=== PATIENT | male | born 1965 | race Caucasian/White ===

== ENCOUNTER 2016-08-05 16:23 | Emergency (ER) | payer OTHER ==
[~2016-08-05 16:23] MED LIST: PERCOCET1 TA1 PO
--- NOTE | 2016-08-05 17:10 | DIAGNOSTIC IMAGING REPORT ---
PROCEDURE: XR CHEST 1 VIEW INDICATION: CHEST PAIN TECHNIQUE: Portable AP view 04:57 p.m. COMPARISON: Chest 05/23/2015 FINDINGS: Lungs are clear. Heart and mediastinum are normal. Thorax is normal. IMPRESSION: 1. Negative chest.
--- NOTE | 2016-08-05 18:29 | ED NURSING NOTES ---
Clinical Report - Nurses [facility] [address] [place] [address] 08/05/2016 16:25 Patient: SAMANTHA FRANK TRIAGE Triage time 16:35. Chief Complaint: SKIN PROBLEM and BOIL. --16:39 Christine Matute R.N. 16:34 08/05/16. BP: 141/86. HR: 123. RR: 18. O2 saturation: 100%. Temp: 97.4 F. Pain level now 07/18. --16:39 Christine Matute R.N. Weight: 77.1 kg stated. Height/Length: 72 inches Per Patient. BMI: 23.1. --18:31 Bismark Mcgregor R.N. Medications None. --16:36 Christine Matute R.N. Allergies Sulfa Antibiotics. Possible --16:37 Bismark Mcgregor R.N. The following entry was struck and corrected by Bismark Mcgregor R.N., 18:31 (08/05/16) Reason for correction - other(correction). <<STRICKEN ENTRY-- Sulfa Antibiotics. --16:37 Christine Matute R.N. --END STRIKE>>. History Arrived by private vehicle. Historian: patient. Location - left buttock and left wrist. It is described as painful. ( shoots up with heroine). SOCIAL HX: Heavy tobacco smoker (cigarette)- less than 1 pack per day. History of drug use: heroin, methamphetamines. No alcohol use. No infectious disease exposure. NUTRITIONAL RISK ASSESSMENT: The nutritional risk assessment revealed no deficiencies. FUNCTIONAL ASSESSMENT: Functional assessment: no impairments noted. LEARNING NEEDS ASSESSMENT: The learning needs assessment revealed no barriers. SKIN INTEGRITY ASSESSMENT: Skin integrity risk assessment completed. No skin integrity risk identified. --16:39 Christine Matute R.N. PROBLEMS: Abscess. Substance Abuse. Colon Cancer. Fractured jaw. Fractured collar bone. Fractured pelvis in 2 places. Hiatal Hernia. Hypertension. --16:37 Christine Matute R.N. ADDITIONAL SURGERIES: Appendectomy. --16:37 Christine Matute R.N. Interventions ID band on patient. To treatment room. --16:39 Christine Matute R.N. PHYSICAL ASSESSMENT 16:41 08/05/16. GENERAL / NEURO / PSYCH: Alert. Oriented X 4. HEENT: Mucous membranes are pink. RESPIRATORY: Mild respiratory distress. Cough. Breath sounds within normal limits. CVS: Capillary refill less than 2 seconds. Pulses within normal limits. GI / : Abdomen nontender. SKIN: Skin lesion present. Normal skin turgor. Clear drainage. Tenderness on the left forearm and left buttock. Swelling present. Increased warmth on the back, left forearm and left buttock. Erythema in the left groin, on the back, waist area, left forearm and left buttock. --16:41 Christine Matute R.N. NURSING PROGRESS NOTES 16:42 08/05/16. The plan of care for this patient includes an assessment with efforts to address the patient's anxiety and fear; impairment of the integumentary system; therapeutic needs of the patient as indicated by complaint specific guidelines. Patient gowned. Call light placed in reach. Side rails up x 1. Bed placed in lowest position. Brakes of bed on. Patient ready for evaluation- chart flagged. --16:42 Christine Matute R.N. EKG time: (1651). EKG was ordered, performed by a tech and shown to the ED physician. --17:04 Yazmin Choi ER Tech1 17:50 08/05/16. I & D: Incision and Drainage of abscess performed by MOOK. Assisted by one tech. Preparation: Incision and Drainage tray set up with 2% lidocaine with epi. Post-procedure: he was stable. --17:50 Christine Matute R.N. ( culture sent to lab.). --18:02 Yazmin Choi ER Tech1 18:17 08/05/16. BP: 124/79. HR: 122. RR: 6. O2 saturation: 98% on room air. Temp: 98.9 F. Pain level now: 2/10. Additional comments: in abdomen, feels constipated. --18:18 Christine Matute R.N. 18:07 08/05/2016 Lidocaine-Epinephrine (Lidocaine-Epinephrine) Injection 2 % given. (completed by MOOK). --18:32 Bismark Mcgregor R.N. 18:20 08/05/2016 Bactrim DS (Sulfamethoxazole-TMP DS) PO Tablets 1 tab given. Allergies verified and confirmed 5 rights. (patient states he has had bactrim before and had no problems. Not sure when he had reaction to Sulfa). --18:20 Christine Matute R.N. 18:29 08/05/16. --18:29 Bismark Mcgregor R.N. <<STRICKEN ENTRY-- 18:29 08/05/16. BP: 124/72. HR: 77. RR: 14. O2 saturation: 99% on room air. Temp: 98.1 F. Pain level now: 0/10. --18:29 Bismark Mcgregor R.N. --END STRIKE>> Correction. --18:30 Bismark Mcgregor R.N. 18:31 08/05/16. --18:31 Bismark Mcgregor R.N. 18:30 08/05/16. BP: 130/77. HR: 117. RR: 20. O2 saturation: 97% on room air. Temp: 98.1 F (oral). Pain level now: 0/10. --18:31 Bismark Mcgregor R.N. DISPOSITION / DISCHARGE 18:35 08/05/16. Condition at departure: improved. The goals identified in the patient's plan of care were met. No learning barriers present. Discharge instructions provided and reviewed with the patient. Reviewed warnings. Reviewed medication(s). Treatments reviewed. Patient verbalized understanding. Written instructions provided in Faroese. The patient was discharged by the physician assistant property manager. He was discharged home and accompanied by family. He left the Emergency Department ambulatory and via private vehicle. Family member driving. FALL RISK ASSESSMENT: Fall risk assessment completed. No fall risk identified. --18:35 Bismark Mcgregor R.N. 18:34 08/05/16. BP: 121/78. HR: 118. HR. PA notified. RR: 20. O2 saturation: 100% on room air. Temp: 98.1 F (oral). Pain level now: 0/10. --18:35 Bismark Mcgregor R.N. 18:35 08/05/16. Departure time: 18:35. --18:35 Bismark Mcgregor R.N. Locked/Released at 08/05/2016 18:47 by Bismark Mcgregor R.N.
--- NOTE | 2016-08-05 18:29 | ED ORDER SUMMARY ---
..... Patient: SAMANTHA FRANK OrderSheet [facility] VisitID: [id number] [place] [address] 51y, M Registration Date/Time: 08/05/2016 ORDER SHEET Weight: 77.1 kg (stated) Allergies: Sulfa Antibiotics, GENERAL ORDERS: Chest 1V Urgent (16:45 08/05/2016 EKoroleva P.A.-C) (Ack 16:46 KHoerner) (17:39 TChapman R.N.) Particleboard Factory Worker (Continuous) (16:46 08/05/2016 EKoroleva P.A.-C) (Ack 16:46 KHoerner) CBC w Diff Urgent (16:46 08/05/2016 EKoroleva P.A.-C) (Ack 16:46 KHoerner) (17:39 TChapman R.N.) BMP Urgent (16:46 08/05/2016 EKoroleva P.A.-C) (Ack 16:46 KHoerner) (17:39 TChapman R.N.) EKG - ER Stat (16:46 08/05/2016 EKoroleva P.A.-C) (Ack 16:46 KHoerner) (17:03 LNations ER Tech1) PCT (Procalcitonin) Urgent (16:46 08/05/2016 EKoroleva P.A.-C) (Ack 16:47 KHoerner) (17:39 TChapman R.N.) Lactate, Serum Urgent (16:46 08/05/2016 EKoroleva P.A.-C) (Ack 16:47 KHoerner) (17:39 TChapman R.N.) Set up (I&D) (16:47 08/05/2016 EKoroleva P.A.-C) (17:19 TChapman R.N.) Vitals (17:52 08/05/2016 EKoroleva P.A.-C) (18:13 TChapman R.N.) Culture, Wound Surface (Buttock) (L) Urgent (18:11 08/05/2016 Garland De La CruzASusana-Janis) (18:12 LNations ER Tech1) MEDICATION ORDERS: Lidocaine-Epinephrine Injection 2 % (soln) (NOW, place at bedside) (16:47 08/05/2016 Garland Coe.ASusana-C) (Ack 17:19 TChapman R.N.) (18:32 JBoardley R.N.) Bactrim DS PO (Tablet 800-160 mg) 1 tab (NOW) (18:14 08/05/2016 Garland Coe.ASusana-C) (18:20 TChapman R.N.) IV FLUIDS: ORDER SHEET NOTES: [Electronically signed by Bismark Mcgregor R.N. (18:47 08/05/2016)] [Electronically signed by Billie Grissom P.A.-C (21:28 08/05/2016)] [Electronically locked/signed by Bismark Mcgregor R.N. (18:47 08/05/2016)]
--- NOTE | 2016-08-05 18:29 | ED ORDER SUMMARY ---
..... Patient: SAMANTHA FRANK OrderSheet [facility] VisitID: [id number] [place] [address] 51y, M Registration Date/Time: 08/05/2016 ORDER SHEET Weight: 77.1 kg (stated) Allergies: Sulfa Antibiotics, GENERAL ORDERS: Chest 1V Urgent (16:45 08/05/2016 EKoroleva P.A.-C) (Ack 16:46 KHoerner) (17:39 TChapman R.N.) Professor Of Early Childhood Education (Continuous) (16:46 08/05/2016 EKoroleva P.A.-C) (Ack 16:46 KHoerner) CBC w Diff Urgent (16:46 08/05/2016 EKoroleva P.A.-C) (Ack 16:46 KHoerner) (17:39 TChapman R.N.) BMP Urgent (16:46 08/05/2016 EKoroleva P.A.-C) (Ack 16:46 KHoerner) (17:39 TChapman R.N.) EKG - ER Stat (16:46 08/05/2016 EKoroleva P.A.-C) (Ack 16:46 KHoerner) (17:03 LNations ER Tech1) PCT (Procalcitonin) Urgent (16:46 08/05/2016 EKoroleva P.A.-C) (Ack 16:47 KHoerner) (17:39 TChapman R.N.) Lactate, Serum Urgent (16:46 08/05/2016 EKoroleva P.A.-C) (Ack 16:47 KHoerner) (17:39 TChapman R.N.) Set up (I&D) (16:47 08/05/2016 EKoroleva P.A.-C) (17:19 TChapman R.N.) Vitals (17:52 08/05/2016 EKoroleva P.A.-C) (18:13 TChapman R.N.) Culture, Wound Surface (Buttock) (L) Urgent (18:11 08/05/2016 Garland De La CruzASusana-Janis) (18:12 LNations ER Tech1) MEDICATION ORDERS: Lidocaine-Epinephrine Injection 2 % (soln) (NOW, place at bedside) (16:47 08/05/2016 Garland Coe.ASusana-C) (Ack 17:19 TChapman R.N.) (18:32 JBoardley R.N.) Bactrim DS PO (Tablet 800-160 mg) 1 tab (NOW) (18:14 08/05/2016 Garland Coe.ASusana-C) (18:20 TChapman R.N.) IV FLUIDS: ORDER SHEET NOTES: [Electronically signed by Bismark Mcgregor R.N. (18:47 08/05/2016)] [Electronically signed by Billie Grissom P.A.-C (21:28 08/05/2016)] [Electronically locked/signed by Bismark Mcgregor R.N. (18:47 08/05/2016)]
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
--- NOTE | 2016-08-05 21:28 | ED DISCHARGE INSTRUCTIONS ---
Patient: SAMANTHA FRANK General Instructions [facility] VisitID: [id number] [place] [address] 51y, M Registration Date/Time: 08/05/2016 Single deep abscess with incision and drainage. INSTRUCTIONS ([facility] for wound follow up if worse return to ER). Prescription Medications: Bactrim DS 800 mg / 160 mg: take 1 tablet orally every 12 hours for 10 days. No refill. Follow-up: Follow up with your doctor in three days. ADDITIONAL INFORMATION Abscess [Incision & Drainage] An abscess (sometimes called a boil) occurs when bacteria get trapped under the skin and begin to grow. Pus forms inside the abscess as the body responds to the bacteria. An abscess can occur with an insect bite, ingrown hair, blocked oil gland, pimple, cyst, or puncture wound. Treatment of your abscess has required an incision to drain the pus. If the abscess pocket was large, a gauze packing may have been inserted. This will need to be removed and possibly replaced on your next visit. Antibiotics are not required in the treatment of a simple abscess, unless the infection is spreading into the skin around the wound (known as cellulitis). Healing of the wound will take about one to two weeks depending on the size of the abscess. Healthy tissue will grow from the bottom and sides of the opening until it seals over. Home Care: The wound may drain for the first two days. Cover the wound with a clean dry dressing. If the dressing becomes soaked with blood or pus, change it. If a gauze packing was placed inside the abscess cavity, you may be advised to remove it yourself. You may do this in the shower. Once the packing is removed, you should wash the area in the shower or bath 3 to 4 times a day, until the skin opening has closed. If you were prescribed antibiotics, take them as directed until they are all gone. You may use acetaminophen (Tylenol) or ibuprofen (Motrin, Advil) to control pain, unless another pain medicine was prescribed. [ NOTE: If you have liver disease or ever had a stomach ulcer, talk with your doctor before using these medicines.] Follow Up with your doctor as advised by our staff. If a gauze packing was inserted in your wound, it should be removed in 1-2 days. Check your wound every day for the signs of worsening infection listed below. Get Prompt Medical Attention if any of the following occur: Increasing redness or swelling Red streaks in the skin leading away from the wound Increasing local pain or swelling Continued pus draining from the wound two days after treatment Fever of 100.4F (38C) or higher, or as directed by your healthcare provider Sulfamethoxazole, Trimethoprim Oral tablet What is this medicine? SULFAMETHOXAZOLE; TRIMETHOPRIM or SMX-TMP (suhl fuh meth OK emily zohl; trye METH oh prim) is a combination of a sulfonamide antibiotic and a second antibiotic, trimethoprim. It is used to treat or prevent certain kinds of bacterial infections. It will not work for colds, flu, or other viral infections. How should I use this medicine? Take this medicine by mouth with a full glass of water. Follow the directions on the prescription label. Take your medicine at regular intervals. Do not take it more often than directed. Do not skip doses or stop your medicine early. Talk to your aircraft layout worker regarding the use of this medicine in children. Special care may be needed. This medicine has been used in children as young as 2 months of age. What side effects may I notice from receiving this medicine? Side effects that you should report to your doctor or health palliative care specialist as soon as possible: allergic reactions like skin rash or hives, swelling of the face, lips, or tongue breathing problems fever or chills, sore throat irregular heartbeat, chest pain joint or muscle pain pain or difficulty passing urine red pinpoint spots on skin redness, blistering, peeling or loosening of the skin, including inside the mouth unusual bleeding or bruising unusually weak or tired yellowing of the eyes or skin Side effects that usually do not require medical attention (report to your doctor or health palliative care specialist if they continue or are bothersome): diarrhea dizziness headache loss of appetite nausea, vomiting nervousness What may interact with this medicine? Do not take this medicine with any of the following medications: aminobenzoate potassium dofetilide metronidazole This medicine may also interact with the following medications: GIDEON inhibitors like benazepril, enalapril, lisinopril, and ramipril cyclosporine digoxin diuretics indomethacin medicines for diabetes methenamine methotrexate phenytoin potassium supplements pyrimethamine sulfinpyrazone tricyclic antidepressants warfarin What if I miss a dose? If you miss a dose, take it as soon as you can. If it is almost time for your next dose, take only that dose. Do not take double or extra doses. Where should I keep my medicine? Keep out of the reach of children. Store at room temperature between 20 to 25 degrees C (68 to 77 degrees F). Protect from light. Throw away any unused medicine after the expiration date. What should I tell my health care provider before I take this medicine? They need to know if you have any of these conditions: anemia asthma being treated with anticonvulsants if you frequently drink alcohol containing drinks kidney disease liver disease low level of folic acid or [id number] dehydrogenase poor nutrition or malabsorption porphyria severe allergies thyroid disorder an unusual or allergic reaction to sulfamethoxazole, trimethoprim, sulfa drugs, other medicines, foods, dyes, or preservatives or trying to get breast-feeding What should I watch for while using this medicine? Tell your doctor or health palliative care specialist if your symptoms do not improve. Drink several glasses of water a day to reduce the risk of kidney problems. Do not treat diarrhea with over the counter products. Contact your doctor if you have diarrhea that lasts more than 2 days or if it is severe and watery. This medicine can make you more sensitive to the sun. Keep out of the sun. If you cannot avoid being in the sun, wear protective clothing and use a sunscreen. Do not use sun lamps or tanning beds/booths. You have been given the following additional information: Abscess, Incision And Drainage Sulfamethoxazole, Trimethoprim Oral tablet (Electronically signed by Billie Grissom P.A.-C 08/05/2016 21:28)
--- NOTE | 2016-08-05 21:28 | ED MAR SUMMARY ---
..... Medication Administration Record [facility] [address] [place] [address] Patient: SAMANTHA FRANK Visit ID: [id number] 51y, M Weight: 77.1 kg Height/Length: 72 in BMI: 23.1 ALLERGIES: Sulfa Antibiotics Given 18:07 08/05/2016 Bismark Mcgregor RMaria Teresa Medication Administered: LIDOCAINE-EPINEPHRINE [INJECTION] (LIDOCAINE-EPINEPHRINE), Dose: 2 % Injection. Medication Ordered: Lidocaine-Epinephrine Injection 2 % (soln) (NOW, place at bedside). Given 18:20 08/05/2016 Christine Matute R.N. Medication Administered: BACTRIM DS [PO] (SULFAMETHOXAZOLE-TMP DS), Dose: 1 tab Tablets PO. Medication Ordered: Bactrim DS PO (Tablet 800-160 mg) 1 tab (NOW).
--- NOTE | 2016-08-05 21:28 | ED MED RECONCILIATION SUMMARY ---
Patient: SAMANTHA FRANK Medication Reconciliation Report [facility] VisitID: [id number] [address] [place] [address] 51y, M Registration Date/Time: 08/05/2016 Weight: 77.1 kg Height/Length: 72 in. BMI: 23.1 ALLERGIES: Sulfa Antibiotics The patient's Home Medications are listed below: NONE. The source(s) of the original Home Medication information: Not obtained. The following Medications were given to the patient in the Emergency Department: Bactrim DS [PO] PO 1 tab, administered: 08/05/2016 6:20:00 PM Lidocaine-Epinephrine [Injection] Injection 2 %, administered: 08/05/2016 6:07:00 PM The following Medications were prescribed to the patient: Bactrim DS 800 mg / 160 mg: take 1 tablet orally every 12 hours for 10 days. No refill. -- Billie Grissom, P.A.-C
--- NOTE | 2016-08-05 21:28 | ED MED RECONCILIATION SUMMARY ---
Patient: SAMANTHA FRANK Medication Reconciliation Report [facility] VisitID: [id number] [address] [place] [address] 51y, M Registration Date/Time: 08/05/2016 Weight: 77.1 kg Height/Length: 72 in. BMI: 23.1 ALLERGIES: Sulfa Antibiotics The patient's Home Medications are listed below: NONE. The source(s) of the original Home Medication information: Not obtained. The following Medications were given to the patient in the Emergency Department: Bactrim DS [PO] PO 1 tab, administered: 08/05/2016 6:20:00 PM Lidocaine-Epinephrine [Injection] Injection 2 %, administered: 08/05/2016 6:07:00 PM The following Medications were prescribed to the patient: Bactrim DS 800 mg / 160 mg: take 1 tablet orally every 12 hours for 10 days. No refill. -- Billie Grissom, P.A.-C
--- NOTE | 2016-08-05 21:28 | ED MAR SUMMARY ---
..... Medication Administration Record [facility] [address] [place] [address] Patient: SAMANTHA FRANK Visit ID: [id number] 51y, M Weight: 77.1 kg Height/Length: 72 in BMI: 23.1 ALLERGIES: Sulfa Antibiotics Given 18:07 08/05/2016 Bismark Mcgregor RMaria Teresa Medication Administered: LIDOCAINE-EPINEPHRINE [INJECTION] (LIDOCAINE-EPINEPHRINE), Dose: 2 % Injection. Medication Ordered: Lidocaine-Epinephrine Injection 2 % (soln) (NOW, place at bedside). Given 18:20 08/05/2016 Christine Matute R.N. Medication Administered: BACTRIM DS [PO] (SULFAMETHOXAZOLE-TMP DS), Dose: 1 tab Tablets PO. Medication Ordered: Bactrim DS PO (Tablet 800-160 mg) 1 tab (NOW).
--- NOTE | 2016-08-05 21:28 | ED DISCHARGE INSTRUCTIONS ---
Patient: SAMANTHA FRANK General Instructions [facility] VisitID: [id number] [place] [address] 51y, M Registration Date/Time: 08/05/2016 Single deep abscess with incision and drainage. INSTRUCTIONS ([facility] for wound follow up if worse return to ER). Prescription Medications: Bactrim DS 800 mg / 160 mg: take 1 tablet orally every 12 hours for 10 days. No refill. Follow-up: Follow up with your doctor in three days. ADDITIONAL INFORMATION Abscess [Incision & Drainage] An abscess (sometimes called a boil) occurs when bacteria get trapped under the skin and begin to grow. Pus forms inside the abscess as the body responds to the bacteria. An abscess can occur with an insect bite, ingrown hair, blocked oil gland, pimple, cyst, or puncture wound. Treatment of your abscess has required an incision to drain the pus. If the abscess pocket was large, a gauze packing may have been inserted. This will need to be removed and possibly replaced on your next visit. Antibiotics are not required in the treatment of a simple abscess, unless the infection is spreading into the skin around the wound (known as cellulitis). Healing of the wound will take about one to two weeks depending on the size of the abscess. Healthy tissue will grow from the bottom and sides of the opening until it seals over. Home Care: The wound may drain for the first two days. Cover the wound with a clean dry dressing. If the dressing becomes soaked with blood or pus, change it. If a gauze packing was placed inside the abscess cavity, you may be advised to remove it yourself. You may do this in the shower. Once the packing is removed, you should wash the area in the shower or bath 3 to 4 times a day, until the skin opening has closed. If you were prescribed antibiotics, take them as directed until they are all gone. You may use acetaminophen (Tylenol) or ibuprofen (Motrin, Advil) to control pain, unless another pain medicine was prescribed. [ NOTE: If you have liver disease or ever had a stomach ulcer, talk with your doctor before using these medicines.] Follow Up with your doctor as advised by our staff. If a gauze packing was inserted in your wound, it should be removed in 1-2 days. Check your wound every day for the signs of worsening infection listed below. Get Prompt Medical Attention if any of the following occur: Increasing redness or swelling Red streaks in the skin leading away from the wound Increasing local pain or swelling Continued pus draining from the wound two days after treatment Fever of 100.4F (38C) or higher, or as directed by your healthcare provider Sulfamethoxazole, Trimethoprim Oral tablet What is this medicine? SULFAMETHOXAZOLE; TRIMETHOPRIM or SMX-TMP (suhl fuh meth OK emily zohl; trye METH oh prim) is a combination of a sulfonamide antibiotic and a second antibiotic, trimethoprim. It is used to treat or prevent certain kinds of bacterial infections. It will not work for colds, flu, or other viral infections. How should I use this medicine? Take this medicine by mouth with a full glass of water. Follow the directions on the prescription label. Take your medicine at regular intervals. Do not take it more often than directed. Do not skip doses or stop your medicine early. Talk to your telegraphic typewriter repairer regarding the use of this medicine in children. Special care may be needed. This medicine has been used in children as young as 2 months of age. What side effects may I notice from receiving this medicine? Side effects that you should report to your doctor or health rn homecare as soon as possible: allergic reactions like skin rash or hives, swelling of the face, lips, or tongue breathing problems fever or chills, sore throat irregular heartbeat, chest pain joint or muscle pain pain or difficulty passing urine red pinpoint spots on skin redness, blistering, peeling or loosening of the skin, including inside the mouth unusual bleeding or bruising unusually weak or tired yellowing of the eyes or skin Side effects that usually do not require medical attention (report to your doctor or health rn homecare if they continue or are bothersome): diarrhea dizziness headache loss of appetite nausea, vomiting nervousness What may interact with this medicine? Do not take this medicine with any of the following medications: aminobenzoate potassium dofetilide metronidazole This medicine may also interact with the following medications: GIDEON inhibitors like benazepril, enalapril, lisinopril, and ramipril cyclosporine digoxin diuretics indomethacin medicines for diabetes methenamine methotrexate phenytoin potassium supplements pyrimethamine sulfinpyrazone tricyclic antidepressants warfarin What if I miss a dose? If you miss a dose, take it as soon as you can. If it is almost time for your next dose, take only that dose. Do not take double or extra doses. Where should I keep my medicine? Keep out of the reach of children. Store at room temperature between 20 to 25 degrees C (68 to 77 degrees F). Protect from light. Throw away any unused medicine after the expiration date. What should I tell my health care provider before I take this medicine? They need to know if you have any of these conditions: anemia asthma being treated with anticonvulsants if you frequently drink alcohol containing drinks kidney disease liver disease low level of folic acid or [id number] dehydrogenase poor nutrition or malabsorption porphyria severe allergies thyroid disorder an unusual or allergic reaction to sulfamethoxazole, trimethoprim, sulfa drugs, other medicines, foods, dyes, or preservatives or trying to get breast-feeding What should I watch for while using this medicine? Tell your doctor or health rn homecare if your symptoms do not improve. Drink several glasses of water a day to reduce the risk of kidney problems. Do not treat diarrhea with over the counter products. Contact your doctor if you have diarrhea that lasts more than 2 days or if it is severe and watery. This medicine can make you more sensitive to the sun. Keep out of the sun. If you cannot avoid being in the sun, wear protective clothing and use a sunscreen. Do not use sun lamps or tanning beds/booths. You have been given the following additional information: Abscess, Incision And Drainage Sulfamethoxazole, Trimethoprim Oral tablet (Electronically signed by Billie Grissom P.A.-C 08/05/2016 21:28)
== END 2016-08-05 18:35 | disposition home or self-care (01) ==
LOC: ED SRH 16:23
DX: L02.31 Cutaneous abscess of buttock (principal); R07.9 Chest pain, unspecified; D72.829 Elevated white blood cell count, unspecified; R21 Rash and other nonspecific skin eruption; I10 Essential (primary) hypertension; F17.210 Nicotine dependence, cigarettes, uncomplicated; Z88.2 Allergy status to sulfonamides
CPT/HCPCS: 90047; 90070; 90131; 90309; 91672; 92031; 93004; 95059